=== PATIENT | male | born 1980 | race African-American/Black ===

== ENCOUNTER 2016-12-02 15:40 | Emergency (ER) | payer OTHER ==
[~2016-12-02] VITALS: Ht 182.9 cm; Wt 103.0 kg
[~2016-12-02 15:40] MED LIST: AMOXIL500 MG PO
--- NOTE | 2016-12-02 17:31 | ED INFLUENZA/URI COMPLAINT ---
History of Present Illness General Chief Complaint: Fever Stated Complaint: FEVER Source: patient, old records Exam Limitations: no limitations Vital Signs & Intake/Output Vital Signs & Intake/Output Vital Signs Date Time Temp Pulse Resp B/P B/P Pulse O2 O2 Flow FiO2 Mean Ox Delivery Rate 12/02 1808 99.6 96 16 143/66 96 Room Air 12/02 1737 102.8 12/02 1733 99.6 12/02 1553 104.8 12/02 1547 104.8 111 16 160/74 97 Room Air Allergies Coded Allergies: NO KNOWN ALLERGIES (04/05/15) Reconcile Medications Azithromycin (Zithromax) 250 MG TABLET 1 DP PO AD PNA 2 the first day followed by 1 for days 2-5 Dm/PE/Acetaminophen/Doxylamine (Vicks Nyquil Severe Cold-Flu) (Unknown Strength) LIQUID (Unknown Dose) PO PRN FLU SYMPTOMS (Reported) Ibuprofen 600 MG TABLET 1 TAB PO PRN PAIN/FEVER (Reported) with food Ondansetron (Zofran Odt) 4 MG TAB.RAPDIS 1 TAB SL TID N/V (Reported) Triage Note: PT STATES HE HAS A FEVER THAT STARTED ON MONDAY. PT STATES HIS FEVER COMES AND GOES. PT STATES HE HAS A DRY COUGH AT TIMES. Triage Nurses Notes Reviewed? yes Onset: Abrupt Duration: day(s): (5), intermittent Timing: recent history Severity: mild, moderate Severity Numbers: 5 Prior Episodes/Possible Cause: occassional episodes No Modifying Factors: none Associated Symptoms: CONGESTION, COUGH HPI: 36-year-old male with no medical history presents to ER for evaluation complaining of fever intermittent associated with a nonproductive cough for the past 4 days. He's been taking Motrin after he went to an urgent care yesterday with improvement in the fevers. No shortness of breath no sore throat reports a congestion and rhinorrhea denies ear pain. No abdominal pain nausea vomiting or diarrhea. His son is home sick with similar symptoms no recent travel or tick or insect bites. No rashes to his skin he does not smoke Past History Travel History Traveled to [place] past 21 day No Medical History Any Pertinent Medical History? 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 No Review of Systems Review of Systems Constitutional: Reports: see HPI. All Other Systems: Reviewed and Negative Comments Review of systems: See HPI, All other systems negative. Constitutional, no chills fever, no malaise HEENT: No visual changes no sore throat congestion, Cardiovascular: No chest pain , no palpitation Skin: no rashes, no change in skin Respiratory: No dyspnea cough no sputum GI: No nausea no vomiting, no diarrhea, no bloating/constipation : No dysuria No hematuria, no frequency, no discharge Muscle skeletal: No joint pain, no joint swelling, no back pain, no neck pain, Neurologic: No numbness no headache Psych: No stress Heme/endocrine: No bruising Immunology: No lymphadenopathy Physical Exam Physical Exam General Appearance: no apparent distress, alert, awake Ears, Nose, Throat: normal ENT inspection, moist mucous membrane, hearing grossly normal, Tympanic normal Comments: Well-developed well-nourished patient in no apparent distress. HHead/Face: Atraumatic, no maxillary/frontal sinus tenderness, no facial swelling Eyes: PERRL, EOMI, no conjunctival injection. No nystagmus Ear:External auditory canal and Tympanic membranes clear, no erythema, no FB. Nose: atraumatic.Normal inspection: No bleeding Throat: Moist mucous membranes.Pharynx normal. No pharyngeal erythema/exudate seen. No stridor/drooling or assymetry. No swelling or edema. Neck: Supple, no lymphadenopathy, FROM Back: FROM Cardiovascular: Regular rate and rhythms no murmurs Respiratory: Chest nontender.There were no bony deformities, no asymmetry. No respiratory distress. Patient speaking in full complete sentences. Breath sounds clear to auscultation bilaterally: NO W/R/R Extremities: full range of motion Neuro: awake, alert, and oriented to person, place and time. There were no obvious focal neurologic abnormalities. Skin: Warm & dry;No appreciable rash on exposed skin Psych: Mood affect normal, normal memory normal judgment. Core Measures Severe Sepsis Present: No Septic Shock Present: No Progress Differential Diagnosis: influenza, otitis, pneumonia, pharyngitis, sinusitis Plan of Care: Orders Procedure Date/time Status LACTIC ACID 12/02 1716 Complete BLOOD CULTURE 12/02 154 Active COMPREHENSIVE METABOLIC PANEL 12/02 1548 Complete CBC WITHOUT DIFFERENTIAL 12/02 1548 Active Laboratory Tests 12/02/161724: Lactic Acid 0.8 12/02/161724: Anion Gap 14, Estimated GFR > 60, BUN/Creatinine Ratio 11.7, Glucose 105 H, Calcium 9.3, Total Bilirubin 0.8, AST 39, ALT 40, Alkaline Phosphatase 77, Total Protein 7.3, Albumin 4.1, Globulin 3.2, Albumin/Globulin Ratio 1.3, CBC w Diff MAN DIFF ORDERED, RBC 4.73, MCV 90.2, MCH 30.0, RDW 13.2, MPV 7.3 L, Gran % 85.5 H, Lymphocytes % 6.3 L, Monocytes % 8.2, Eosinophils % 0, Basophils % 0 L, Absolute Granulocytes 8.2 H, Segmented Neutrophils Pending, Absolute Lymphocytes 0.6 L, Absolute Monocytes 0.8 H, Absolute Eosinophils 0, Absolute Basophils 0, PUBS MCHC 33.3 Microbiology 12/02 1740 BLOOD: Blood Culture - RECD 12/02 1724 BLOOD: Blood Culture - RECD Labs ordered old records reviewed patient is medicated with Tylenol in triage, repeat temp 99.6 tympanic patient reports to feeling improved resting in no apparent distress at this time On repeat evaluation patient's temperature is 99.4 I discussed with the patient at length all of their results. I had an extensive conversation regarding need for close follow up with their primary care physician this week as well as return precautions. I answered all of their questions, they feel comfortable with the plan and follow-up care. I discussed with the patient/family the medications that they will receive. I gave them signs and symptoms that could indicate an adverse reaction. I have advised them to limit their activities until they can see how they respond to the medication. (EYAL HOPPER,JAVIER) Diagnostic Imaging: Viewed by Me: Radiology Read. Discussed w/RAD: Radiology Read. Radiology Impression: PATIENT: PASTOR BEST PRESENT AGE: 36 PATIENT ACCOUNT NO: [id number] : 78 LOCATION: [facility] ORDERING PHYSICIAN: JAVIER HOPPER SERVICE DATE: 12/02/16-1726 EXAM TYPE: RAD - XRY- CHEST XRAY, PA AND LATERAL EXAMINATION: XR CHEST CLINICAL INFORMATION: Fever and cough COMPARISON: None TECHNIQUE: 2 views of the chest were obtained. FINDINGS: There is airspace opacification in the right upper lobe probably involving the right middle lobe as well, with partial obscuration of the right hilar and mid mediastinal contour. There is asymmetric prominence of the right hilum which is confluent with some of the airspace opacification. The heart size is normal. The contour of the thoracic aorta is normal. The left lung appears clear. No pleural effusion or pneumothorax. Minor degenerative changes of the spine without evidence of acute osseous abnormality. IMPRESSION: Right upper lobe and right middle lobe airspace opacification compatible with pneumonia. Enlargement of the right hilum suggests reactive adenopathy in this region as well. Follow-up after treatment is recommended to ensure resolution. DICTATED BY: CINDY DREW MD DATE/TIME DICTATED:12/02/161803 LANDSCAPE SPECIALIST:JOSHUA DATE/TIME TRANSCRIBED:12/02/161803 CONFIDENTIAL, DO NOT COPY WITHOUT APPROPRIATE AUTHORIZATION. <Electronically signed in Other Vendor System> SIGNED BY: CINDY DREW MD 12/02/161809 Initial ED EKG: none Departure Departure Time of Disposition: 1807 Disposition: HOME OR SELF CARE Condition: Stable Clinical Impression Primary Impression: Pneumonia Referrals: LEX ROSARIO (PCP/Family) Additional Instructions: ZPAK DIRECTED, CONTINUE WITH TYLENOL OR MOTRIN EVERY 4-6 HOURS IF YOUR TEMPERATURE IS GREATER THEN 100.4. FOLLOW UP WITH YOUR PMD ON MONDAY TO ENSURE YOUR SYMPTOMS ARE IMPROVING, RETURN TO THE ER AT ANYTIME SOONER WITH ANY CONCERNS this was sent to your pharmacy [facility] Departure Forms: Customer Survey General Discharge Information Prescriptions: Current Visit Scripts Azithromycin (Zithromax) 1 DP PO AD #6 TAB 2 the first day followed by 1 for days 2-5
[2016-12-02] MEDS ORDERED: IBUPROFEN600 M1 PO (17:51)
[2016-12-02 17:52] LABS: ABSOLUTE BASOPHIL COUNT 0 /CUMM (0.0-0.2); ABSOLUTE EOSINOPHIL COUNT 0 /CUMM (0.0-0.7); ABSOLUTE GRANULOCYTE CT 8.2 /CUMM (1.4-6.5); ABSOLUTE LYMPH COUNT 0.6 /CUMM (1.2-3.4); ABSOLUTE MONOCYTE COUNT 0.8 /CUMM (0.10-0.60); BASOPHIL % 0 % (0.0-2.0); EOSINOPHIL % 0 % (0-5); GRANULOCYTE % 85.5 % (42.2-75.2); HEMATOCRIT 42.7 % (42-52); MEAN CORPUSCULAR HGB CONC 33.3 G/DL (33.0-37.0); MEAN CORPUSCULAR VOLUME 90.2 FL (80.0-94.0); MEAN PLATELET VOLUME 7.3 FL (7.4-10.4); PLATELET COUNT 226 /CUMM (130-400); RBC DISTRIBUTION WIDTH 13.2 % (11.5-14.5); RED BLOOD CELL CT 4.73 /CUMM (4.70-6.10); WHITE BLOOD CELL COUNT 9.6 /CUMM (4.8-10.8)
[2016-12-02] MEDS ORDERED: ZOFRAN ODT4 M1 SL (17:52)
[2016-12-02] MEDS ORDERED: VICKS NYQUIL S236 ML PO (17:53)
[2016-12-02 18:08] VITALS: BP 143/66
--- NOTE | 2016-12-02 18:10 | RADIOLOGY REPORT ---
EXAMINATION: XR CHEST CLINICAL INFORMATION: Fever and cough COMPARISON: None TECHNIQUE: 2 views of the chest were obtained. FINDINGS: There is airspace opacification in the right upper lobe probably involving the right middle lobe as well, with partial obscuration of the right hilar and mid mediastinal contour. There is asymmetric prominence of the right hilum which is confluent with some of the airspace opacification. The heart size is normal. The contour of the thoracic aorta is normal. The left lung appears clear. No pleural effusion or pneumothorax. Minor degenerative changes of the spine without evidence of acute osseous abnormality. IMPRESSION: Right upper lobe and right middle lobe airspace opacification compatible with pneumonia. Enlargement of the right hilum suggests reactive adenopathy in this region as well. Follow-up after treatment is recommended to ensure resolution.
[2016-12-02] MEDS ORDERED: ZITHROMAX250 M2 PO (18:14)
== END 2016-12-02 18:34 ==
LOC: ERH 15:40
PROVIDERS: Emergency Medicine
DX: J18.9 Pneumonia, unspecified organism (principal); Z87.891 Personal history of nicotine dependence
CPT/HCPCS: 87040